=== PATIENT | female | born 1995 | race African-American/Black ===

== ENCOUNTER 2023-04-18 13:44 | Emergency (ER) | payer SELFPAY ==
[2023-04-18] MEDS ORDERED: dexAMETHasone 10 MG/ML VIAL ONE (14:17)
--- NOTE | 2023-04-18 15:06 | EDPHYS ---
Physician Documentation [facility] Name: Amarilys Mc Age: 27 yrs Sex: Female : 1995 Arrival Date: 04/18/2023 Time: 13:44 Bed 10 Private MD: ED Physician Madhu Prieto HPI: 04/18 14:49 This 27 yrs old Black Female presents to ER via Ambulatory with complaints of Sinus kb Congestion. 14:49 Pt is a 27 year old female with no medical history who presents with cough, fever, left kb ear pain, sinus pressure/pain that started 3 days ago. 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 - Social history:: Smoking status: Patient denies any tobacco usage or history of. ROS: 14:50 Abdomen/GI: Negative for abdominal pain, nausea, vomiting, diarrhea, and constipation, kb 14:50 Constitutional: Positive for fever, 14:50 ENT: Positive for ear pain, sinus congestion, sinus pain, 14:50 Respiratory: Positive for cough, 14:50 All other systems are negative, Exam: 14:50 Constitutional: This is a well developed, well nourished patient who is awake, alert, kb and in no acute distress. Head/Face: Normocephalic, atraumatic. ENT: Moist Mucous membranes Cardiovascular: Regular rate Respiratory: Respirations even and unlabored. No increased work of breathing. Talking in full sentences Skin: Warm, dry with normal turgor. Normal color. MS/ Extremity: Pulses equal, no cyanosis. Neurovascular intact. Full, normal range of motion. Neuro: Awake and alert, GCS 15, oriented to person, place, time, and situation. Moves all extremities. Normal gait. 14:50 Head/face: Sinus tenderness, that is moderate, is located over the left frontal sinus, Vital Signs: 13:49 BP 129 / 86; Pulse 77; Resp 18; Temp 98.7(O); Pulse Ox 98% ; Weight 108.86 kg; Height 5 db ft. 7 in. ; 15:14 BP 127 / 84; Pulse 76; Resp 17; Pulse Ox 99% ; cp4 13:49 Body Mass Index 37.59 (108.86 kg, 170.18 cm) db MDM: 13:46 Patient medically screened. kb 14:50 Differential Diagnosis: Other flu, covid, strep, uri, sinusitis. Data reviewed: vital kb signs, nurses notes. 15:05 Counseling: I had a detailed discussion with the patient and/or guardian regarding the kb historical points, exam findings, and any diagnostic results supporting the discharge/admit diagnosis, lab results, the need for outpatient follow up, a family practitioner, to return to the emergency department if symptoms worsen or persist or if there are any questions or concerns that arise at home. 04/18 13:50 Order name: COVID-19 SARS RT PCR kb 04/18 14:07 Order name: Influenza Screen (A ; Complete Time: 14:39 EDMS 04/18 14:07 Order name: SARS-COV-2 RT PCR; Complete Time: 15:04 EDMS 04/18 14:07 Order name: Group A Streptococcus Rapid Sc; Complete Time: 14:39 EDMS 04/18 14:40 Order name: Throat Culture EDMS Administered Medications: 14:12 Drug: Dexamethasone IM 10 mg IM once Route: IM; Site: right deltoid; cp4 14:32 Follow up: Response: No adverse reaction cp4 Disposition: 16:52 Co-signature as Attending Physician, Madhu Prieto MD I reviewed the patient's care rn provided by the Advanced Practice Provider and agree with the diagnosis and treatment plan. Disposition Summary: 04/18/23 15:05 Discharge Ordered Notes: Location: Home kb Condition: Stable kb Diagnosis - Acute sinusitis, unspecified kb Followup: kb - With: Emergency Department - When: As needed - Reason: Worsening of condition Followup: kb - With: Private Physician - When: 2 - 3 days - Reason: Recheck today's complaints, Continuance of care, Re-evaluation by your physician Discharge Instructions: - Discharge Summary Sheet kb - Sinusitis, Adult, [id number] kb Forms: - Work release form kb - Medication Reconciliation Form kb - Thank You Letter kb - Antibiotic Education kb - Prescription Opioid Use kb - Patient Portal Instructions kb - Leadership Thank You Letter kb Signatures: Dispatcher [employer] EDKaitlynn Lemon FNP-C ACOSTA-Ckb Madhu Prieto MD MD rn Marlene Ellis RN RN db Potter, Christina cpDavid
--- NOTE | 2023-04-18 15:06 | ER ---
Nurse's Notes [facility] Name: Amarilys Mc Age: 27 yrs Sex: Female : 1995 Arrival Date: 04/18/2023 Time: 13:44 Bed 10 Private MD: Diagnosis: Acute sinusitis, unspecified Presentation: 04/18 13:49 Chief complaint: Patient states: CONGESTION AND COUGH X 3 DAYS. Coronavirus screen: db Vaccine status: Patient reports receiving the 1st dose of the Covid vaccine. Client denies travel out of the [place] in the last 14 days. At this time, the client does not indicate any symptoms associated with coronavirus-19. Ebola Screen: Patient negative for fever greater than or equal to 101.5 degrees Fahrenheit, and additional compatible Ebola Virus Disease symptoms Patient denies exposure to infectious person. Patient denies travel to an Ebola-affected area in the 21 days before illness onset. No symptoms or risks identified at this time. Initial Sepsis Screen: Does the patient meet any 2 criteria? No. Patient's initial sepsis screen is negative. Does the patient have a suspected source of infection? No. Patient's initial sepsis screen is negative. Risk Assessment: Do you want to hurt yourself or someone else? Patient reports no desire to harm self or others. Onset of symptoms was April 15, 2023. 13:49 Method Of Arrival: Ambulatory db 13:49 Acuity: SONALI 4 db Triage Assessment: 13:52 General: Appears in no apparent distress. comfortable, Behavior is calm, cooperative. db Pain: Complains of pain in face. EENT: Reports nasal congestion. Neuro: Level of Consciousness is awake, alert, obeys commands, Oriented to person, place, time, situation. Respiratory: Airway is patent Respiratory effort is even, unlabored, Respiratory pattern is regular, symmetrical. 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 - Social history:: Smoking status: Patient denies any tobacco usage or history of. Screenin:12 [facility] ED Fall Risk Assessment (Adult) History of falling in the last 3 months, cp4 including since admission No falls in past 3 months (0 pts) Confusion or Disorientation No (0 pts) Intoxicated or Sedated No (0 pts) Impaired Gait No (0 pts) Mobility Assist Device Used No (0 pt) Altered Elimination No (0 pt) Score/Fall Risk Level 0 - 2 = Low Risk Oriented to surroundings, Maintained a safe environment, Educated pt \T\ family on fall prevention, incl call for assistance when getting out of bed, Hourly rounding (assess needs \T\ fall precautionary measures) done. Abuse screen: Denies threats or abuse. Nutritional screening: No deficits noted. Tuberculosis screening: No symptoms or risk factors identified. Assessment: 14:12 General: Appears in no apparent distress. Behavior is calm, cooperative, appropriate cp4 for age. Vital Signs: 13:49 BP 129 / 86; Pulse 77; Resp 18; Temp 98.7(O); Pulse Ox 98% ; Weight 108.86 kg; Height 5 db ft. 7 in. ; 15:14 BP 127 / 84; Pulse 76; Resp 17; Pulse Ox 99% ; cp4 13:49 Body Mass Index 37.59 (108.86 kg, 170.18 cm) db ED Course: 13:45 Patient arrived in ED. rg4 13:45 Kait[facility]nn High [facility]C [facility] kb 13:46 Madhu Prieto MD is Attending Physician. kb 13:50 Triage completed. db 13:50 Arm band placed on. db 14:12 Bed in low position. Call light in reach. Side rails up X 1. cp4 14:12 No provider procedures requiring assistance completed. Patient did not have IV access cp4 during this emergency room visit. 14:30 Jasmin Tapia is Primary Nurse. cp4 14:31 Group A Streptococcus Rapid Sc Sent. cp4 14:31 SARS-COV-2 RT PCR Sent. cp4 14:31 Influenza Screen (A Sent. cp4 14:31 Strep Sent. cp4 15:15 Provided Education on: sinusitis. cp4 Administered Medications: 14:12 Drug: Dexamethasone IM 10 mg IM once Route: IM; Site: right deltoid; cp4 14:32 Follow up: Response: No adverse reaction cp4 Medication: 14:12 VIS not applicable for this client. cp4 Outcome: 15:05 Discharge ordered by MD. michelle 15:15 Discharged to home ambulatory, cp4 15:15 Condition: stable 15:15 Discharge instructions given to patient, Instructed on discharge instructions, follow up and referral plans. Demonstrated understanding of instructions, follow-up care, 15:16 Patient left the ED. cp4 Signatures: Kaitlynn High, SCARLETT SHANE-Ellie Lopez rg4 Marlene Ellis RN RN Jasmin Coleman cp4 Corrections: (The following items were deleted from the chart) 13:52 13:49 108.86 kg; Height 5 ft. 7 in.; BMI: 37.5; db db
[2023-04-18 17:49] VITALS: TEMP 98.7
[2023-04-18 17:50] VITALS: BP 127/84; O2SAT 99
== END 2023-04-18 15:16 | disposition home or self-care (01) ==
LOC: ER 13:44
DX: J01.90 Acute sinusitis, unspecified (principal); Z11.52 Encounter for screening for COVID-19
CPT/HCPCS: 87070; 87081; 87635; 87804; 96372; 99284; J1100